=== PATIENT | male | born 1960 | race Caucasian/White ===

== ENCOUNTER 2016-10-16 02:32 | Emergency (ER) | payer OTHER ==
--- NOTE | 2016-10-16 19:04 | ER ---
ADMIT: 10/16/2016 RM/LOC: ER [facility] MR#: [id number] [address] [facility] [id number] JELANI RICH [address] [place] [address] Emergency Room Report SEX: M AGE: 55 : 1960 DATE: 10/16/2016 The patient is a 55-year-old male hospitalized at [facility] since , last drank October 12. He has had multiple hospitalizations for alcohol treatment. States he became fearful tonight, barricaded himself in a room, and did write a note to his son basically saying goodbye, highly suggestive of suicidal ideation. When asked, he denies. The patient does suffer from bipolar. Exam remarkable for nontoxic, afebrile male. No acute distress. Lab remarkable for mildly elevated AST and ALT; otherwise, normal labs. Discussed findings and disposition with malt house operator [place], who did discuss with on-call psychiatrist, who agreed to accept transfer by [facility]. Tejinder Schneider MD/ denisse JOB #: [id number] CC: Tejinder Schneider MD, Attending Physician [facility] Physician, Family Physician . [facility]
--- NOTE | 2016-10-18 13:51 | NUR ---
Received SAD person referral. Pt was transfered to [facility].
== END 2016-10-16 06:47 ==
LOC: ER 02:32
DX: F43.11 Post-traumatic stress disorder, acute (principal); F17.210 Nicotine dependence, cigarettes, uncomplicated; G40.909 Epilepsy, unspecified, not intractable, without status epilepticus; Z86.73 Personal history of transient ischemic attack (TIA), and cerebral infarction without residual deficits; Z86.19 Personal history of other infectious and parasitic diseases; Z79.82 Long term (current) use of aspirin; Z79.899 Other long term (current) drug therapy